=== PATIENT | male | born 1955 | race Caucasian/White ===

== ENCOUNTER → 2017-02-20 | Outpatient (CLI) | payer OTHER ==
--- NOTE | 2017-02-20 21:01 | PN ---
DATE OF SERVICE: 02/20/2017 A 61-year-old gentleman who has been followed in the sleep center for treatment of obstructive sleep apnea/hypopnea syndrome. Patient continues to use he is CPAP equipment every night for the whole night. He likes his machine and mask. No problem with the usage. No snoring while he is using his machine. He lost weight from 352 pounds down to 338 pounds. [place] Sleepiness Scale is slightly increased to 11. MEDICATIONS: 1. Aspirin. 2. Aldactone. 3. Atorvastatin. 4. Warfarin. 5. Losartan. 6. Metoprolol. 7. Glipizide. 8. Metformin. 9. Prednisolone. 10. Fish oil. PHYSICAL EXAMINATION: GENERAL: A 61-year-old gentleman without distress. VITAL SIGNS: BP 141/77, HR 70, RR 18, height 73 inches. Weight 338.8 pounds. BMI 44.5. Temperature 97.8. Oxygen saturation at room air 93%. HEENT: PERRLA, EOMI, Evaluation of the oropharynx showed tongue protrudes midline. Extremely low position of soft palate. NECK: Supple. No JVD, Thyroid is not palpable. LUNGS: Clear to percussion and to auscultation. Good air exchange. No wheezing or rhonchi. HEART: S1, S2. Sounds regular today. ABDOMEN: Obese, soft and nontender. Bowel sounds are present. No organomegaly appreciated. EXTREMITIES: 1+ bilateral ankle edema. ROOF TECHNICIAN: Awake, alert, and oriented x3. Cranial nerves 2 to 7 intact. There is no fasciculation or atrophy noted. No focal deficits observed. IMPRESSION: 1. Obstructive sleep apnea-hypopnea syndrome. Patient continues to use his continuous positive airway pressure equipment, benefiting from treatment. 2. Hypertension. 3. History of atrial fibrillation. 4. Swelling of the legs, congestive heart failure. 5. Hyperlipidemia. 6. History of pulmonary hypertension in the past. 7. Borderline blood sugar, pre-diabetes. PLAN: 1. Continue treatment with CPAP every night for the whole night. 2. Continue losing weight. 3. Sleep hygiene with regular time in bed for at least 8 hours. 4. No driving if feeling any sleepiness. 5. Prescription for all necessary CPAP supplies, including mask, tube, filters. Thank you very much for allowing me to participate in the management of your patient. Sincerely, Laz Luis MD, PhD, FAASM Diplomat of [place] [employer], Sleep Medicine Board by [place] [employer] [place] [employer] Tile Molder [facility]
== END | disposition home or self-care (01) ==
LOC: SLEEP 15:57
PROVIDERS: ATTEND Internal Medicine
DX: G47.33 Obstructive sleep apnea (adult) (pediatric) (principal); I10 Essential (primary) hypertension; I25.10 Atherosclerotic heart disease of native coronary artery without angina pectoris; I50.9 Heart failure, unspecified; E78.5 Hyperlipidemia, unspecified; R73.03 Prediabetes; Z79.899 Other long term (current) drug therapy; Z79.01 Long term (current) use of anticoagulants; Z68.41 Body mass index [BMI] 40.0-44.9, adult

== ENCOUNTER → 2018-04-20 | Outpatient (CLI) | payer OTHER ==
[2018-04-20 12:18] LABS: HCT 38.3 % (39.0-53.0); HGB 13.7 gm/dL (13.0-17.5); MCH 31.4 pg (25.0-35.0); MCHC 35.8 g/dL (31.0-37.0); MCV 87.7 fL (80.0-100.0); Mean Platelet Volume 8.2; Platelet Count 195 k/uL (150-450); RBC 4.37 m/uL (4.30-5.90); RDW 14.1 % (11.5-15.5); WBC 6.8 k/uL (3.8-10.6)
[2018-04-20 13:13] LABS: Anion Gap 11 mmol/L; Blood Urea Nitrogen 16 mg/dL (9-20); Carbon Dioxide 26 mmol/L (22-30); Chloride 102 mmol/L (98-107); Potassium 4.6 mmol/L (3.5-5.1); Sodium 139 mmol/L (137-145)
== END | disposition home or self-care (01) ==
LOC: LABPAT 11:45
PROVIDERS: ATTEND Internal Medicine Interventional Cardiology
DX: Z01.812 Encounter for preprocedural laboratory examination (principal); I25.10 Atherosclerotic heart disease of native coronary artery without angina pectoris
CPT/HCPCS: 36415; 80051; 82565; 84520; 85027

== ENCOUNTER 2018-04-24 06:33 | Day surgery (SDC) | payer OTHER ==
[2018-04-21 08:59] VITALS: BMI 43.6
[~2018-04-24 06:33] MED LIST: ALPRAZolam 0.25 MG TAB PO PRN; ALPRAZolam 0.5 MG TAB PO PRN; ASPIRIN 325 MG TAB PO STA; ATORVASTATIN 80 MG TAB PO STA; NITROGLYCERIN SL TABS 0.4 MG TAB SUBLINGUAL PRN; SODIUM CHLORIDE 0.9% 1,000 ML in EMPTY BAG 1 BAG IV ONE
[2018-04-24 07:13] VITALS: TEMP 98.1
[2018-04-24 07:18] LABS: Glucose,Whole Blood 183 mg/dL (75-99)
[2018-04-24 07:22] LABS: INR 1.2 (<1.2); Prothrombin Time 11.1 sec (9.0-12.0)
[2018-04-24] MEDS ORDERED: MIDAZOLAM 2 MG/2 ML VIAL IVP ONE (07:38)
[2018-04-24] MEDS ORDERED: LIDOCAINE 1% INJ 10MG/ML (20 ML MDV) SQ ONE (07:41)
[2018-04-24] MEDS: VERAPAMIL SYRINGE (5 MG/10 ML) INTRAARTER ONE ×2 (07:42→08:10)
[2018-04-24] MEDS ORDERED: HEPARIN SODIUM 1,000 UN/ML (10ML VL) IV ONE (07:44)
[2018-04-24] MEDS ORDERED: fentaNYL (PF) 50 MCG/ML 2 ML AMP IV ONE (08:07)
[2018-04-24] MEDS ORDERED: IOPAMIDOL-370 125ML BTL INJ ONE (08:09)
[2018-04-24] MEDS ORDERED: RX INFO: IV CONTRAST WAS GIVEN 1 EACH MISC MISCELLANE PRN (08:14)
[2018-04-24] MEDS ORDERED: SODIUM CHLORIDE 0.9% 1,000 ML IV SCH (08:15)
--- NOTE | 2018-04-24 09:15 | CC ---
CARDIAC CATHETERIZATION REPORT DATE OF SERVICE: 04/24/2018 PERFORMING PHYSICIAN: Milo Pedroza MD, Manager Mall. PROCEDURE PERFORMED: Selective right and left coronary angiogram. INDICATION: This is a pleasant 62-year-old gentleman with history of cardiomyopathy and status post Bi V ICD as well as multiple risk factors including hypertension and dyslipidemia and known coronary artery disease based on heart catheterization in 2011, was experiencing shortness of breath with exertion. He underwent a myocardial perfusion imaging stress test and that revealed anterolateral ischemia. Because of that, a heart catheterization was recommended. The patient does follow with Dr. Sesay as an outpatient. APPROACH: Right radial artery. COMPLICATION: None. LEVEL OF SEDATION: Moderate with a sedation length of 32 minutes. PROCEDURE DESCRIPTION: After obtaining an informed consent, the patient was brought to the cardiac entry level lab technician. The right radial artery was cannulated using micropuncture technique, the micropuncture wire passed easily, then I placed a 6-Croatian sheath in the right radial artery. After that, I gave the patient 2 mg of verapamil IA and 10,000 units of heparin IV. I did perform selective right and left coronary angiogram. The right coronary angiogram was performed using JR4 catheter and left coronary angiogram was performed using multipurpose catheter. I had a hard time engaging the left main using JL3.5 or JL3. The patient does have extremely tortuous left subclavian and the history extremely tortuous left subclavian artery. The procedure was completed without any complication. SELECTIVE CORONARY ANGIOGRAM: 1. The right coronary artery is a large caliber vessel and it is a dominant vessel. The RCA appeared to be angiographically normal. It bifurcates distally into PDA and PLV branches, both are angiographically normal. 2. The left main is angiographically normal. It is a calcified left main. It bifurcates into left circumflex and left anterior descending artery. 3. The left circumflex is a large caliber vessel. It is a nondominant vessel. The left circumflex appeared to be angiographically normal. In the midportion in the in the proximal portion gives rise into a large OM branch which is angiographically normal and the circ continued after that as a small-caliber vessel in the AV groove. 4. The LAD: The proximal LAD appeared to have mild disease only. The mid LAD appeared to have mild disease only and gives rise into a diagonal branch which appeared to be angiographically normal. The LAD distally is angiographically normal as well. CONCLUSION: 1. Mild nonobstructive coronary artery disease. 2. Calcified left coronary system. 3. Extremely tortuous left subclavian artery. For future heart catheterization,. right femoral approach is advised. POSTPROCEDURE MANAGEMENT: 1. Maximize medical treatment. 2. Follow up with the patient. OMER / TRINON: [id number] /
--- NOTE | 2018-04-24 09:22 | LTR ---
DATE OF SERVICE: 04/24/2018 RE: Greg Garcia Dear Landen; Mr. Greg Garcia underwent a heart catheterization after abnormal myocardial perfusion imaging stress test. The heart catheterization revealed mild nonobstructive coronary artery disease. Thank you for allowing us to participate in his care and please do not hesitate to call if you have any question or concern. Sincerely, MD OMER Cook / DAMON: [id number] /
[2018-04-24 10:34] VITALS: RESP 18
[2018-04-24 12:43] VITALS: BP 127/77; PULSE 68
== END 2018-04-24 13:17 | disposition home or self-care (01) ==
LOC: CATHCVL 06:33
PROVIDERS: ATTEND Internal Medicine Interventional Cardiology
DX: I25.110 Atherosclerotic heart disease of native coronary artery with unstable angina pectoris (principal); R94.39 Abnormal result of other cardiovascular function study; I10 Essential (primary) hypertension; I42.9 Cardiomyopathy, unspecified; I48.0 Paroxysmal atrial fibrillation; E78.00 Pure hypercholesterolemia, unspecified; G47.33 Obstructive sleep apnea (adult) (pediatric); E66.9 Obesity, unspecified; Z68.41 Body mass index [BMI] 40.0-44.9, adult; Z82.49 Family history of ischemic heart disease and other diseases of the circulatory system; Z95.810 Presence of automatic (implantable) cardiac defibrillator; Z88.1 Allergy status to other antibiotic agents; Z88.0 Allergy status to penicillin; Z88.2 Allergy status to sulfonamides; Z79.01 Long term (current) use of anticoagulants; Z79.84 Long term (current) use of oral hypoglycemic drugs; Z79.82 Long term (current) use of aspirin; Z79.899 Other long term (current) drug therapy
CPT/HCPCS: 93454; 85610; C1769 ×3; C1894; J2250; J2001; J3010; J1644; Q9967

== ENCOUNTER → 2020-07-13 | Outpatient (CLI) | payer OTHER ==
--- NOTE | 2020-07-13 11:25 | US ---
EXAMINATION TYPE: US venous doppler duplex LE RT DATE OF EXAM: 07/13/2020 11:17 AM COMPARISON: CLINICAL HISTORY: R22.41 Localized swelling, mass and lump, right,L03.115. Redness. On blood thinner s. No hx DVT. Patient states being on antibiotics and has been better. SIDE PERFORMED: Right TECHNIQUE: The lower extremity deep venous system is examined utilizing real time linear array sonog ramón with graded compression, doppler sonography and color-flow sonography. VESSELS IMAGED: External Iliac Vein (EIV) Common Femoral Vein Deep Femoral Vein Greater Saphenous Vein * Femoral Vein Popliteal Vein Small Saphenous Vein * Proximal Calf Veins (* superficial vessels) Right Leg: Negative for DVT IMPRESSION: There is no evidence for DVT at this time.
== END | disposition home or self-care (01) ==
LOC: RADUSWWP 10:03
PROVIDERS: ATTEND Family Medicine
DX: L03.115 Cellulitis of right lower limb (principal); R22.41 Localized swelling, mass and lump, right lower limb

== ENCOUNTER → 2023-10-14 | Outpatient (CLI) | payer MEDICARE ==
--- NOTE | 2023-10-14 11:26 | XR ---
EXAMINATION TYPE: XR shoulder complete RT DATE OF EXAM: 10/14/2023 COMPARISON: NONE HISTORY: Pain TECHNIQUE: Three views are submitted. FINDINGS: The osseous structures are intact. There is no acute fracture or dislocation. Hypertrophic arthropat hy of the AC joint. Cardiac leads noted. IMPRESSION: 1. AC joint hypertrophic arthropathy correlate for impingement.
== END | disposition home or self-care (01) ==
LOC: RADXRYALE 10:15
PROVIDERS: ATTEND Physician Assistant Medical
DX: M19.011 Primary osteoarthritis, right shoulder (principal)

== ENCOUNTER 2023-12-11 13:57 | Day surgery (SDC) | payer MEDICARE ==
[2023-12-11] MEDS: SODIUM CHLORIDE 0.9% 1,000 ML IV SCH (14:55)
[2023-12-11] MEDS ORDERED: VANCOMYCIN 2,000 MG in SODIUM CHLORIDE 0.9% 250 ML IVPB PRN (15:00)
[2023-12-11 15:03] LABS: Glucose,Whole Blood 117 mg/dL (70-110)
[2023-12-11 15:17] LABS: INR 2.3 (<1.2); Prothrombin Time 22.7 sec (10.0-12.5)
[2023-12-11] MEDS ORDERED: MIDAZOLAM 2 MG/2 ML VIAL ONE (16:40)
[2023-12-11] MEDS ORDERED: fentaNYL (PF) 50 MCG/ML 2 ML AMP ONE (16:40)
[2023-12-11] MEDS: CLINDAMYCIN 600 MG in SODIUM CHLORIDE 0.9% 250 ML IRRIGATION PRN (16:59)
[2023-12-11] MEDS: VANCOMYCIN 2,000 MG in SODIUM CHLORIDE 0.9% 500 ML 500 ML IVPB PRN (16:59)
[2023-12-11] MEDS: CLINDAMYCIN 900 MG in DEXTROSE 5% IN WATER 50 ML IVPB PRN (16:59)
[2023-12-11] MEDS: LIDOCAINE 1% INJ 10MG/ML (20 ML MDV) ONE (17:19)
[2023-12-11] MEDS: ROPIVACAINE 5 MG/ML 30 ML VIAL MISCELLANE ONE (17:23)
[2023-12-11] MEDS ORDERED: ACETAMINOPHEN TAB 325 MG TAB PO PRN (18:04)
--- NOTE | 2023-12-11 18:04 | P.EPPROC ---
- EP Procedure Note Electrophysiology Procedure Note: Diagnosis Mild cardiomyopathy ejection fraction 50% Complete heart block status post AV node ablation for atrial fibrillation Status post biventricular pacemaker Device at [facility] Procedure: Biventricular pacemaker generator change for device at [facility] secondary to normal battery depletion Result: Successful biventricular pacemaker generator change Atrial lead: Patient in atrial fibrillation RV ICD lead: 2.2 V at point 5 ms, no R waves, pace impedance 550 ohms Left ventricular lead: Pacing threshold 0.625 V at 1 ms, M3-M2, pace impedance 780 ohms Escobar NAIL SETTER-P, Quadra allure MP [id number] NAIL SETTER-P Procedure details: Patient was brought to the EP lab in a fasting state. Written informed consent was obtained prior to the procedure. Options, pros and cons, benefits and risks and complications discussed with patient in detail prior to the procedure (shared decision making) previously. Importance of continuing medical treatment emphasized previously. Alternatives discussed previously. Left upper extremity venogram performed. 15 mL IV dye injected in the left arm. Patent axillary/subclavian vein The left pectoral area was prepped and draped as a protocol. IV antibiotics administered 1% lidocaine was used for local anesthesia. A 4 cm incision was made parallel to the deltopectoral groove, about 1.5 cm medial to it. The incision was carried down to the level of the pectoralis muscle and the subfascial pocket was made. Hemostasis was assured. The axillary vein access was obtained. Appropriately sized into to see sheaths were placed. Chronic generator explanted New biventricular pacemaker generator implanted Pocket irrigated with antibiotic solution. Antibiotic pouch placed Leads connected to the biventricular ICD generator. Wound closed in 3 layers and dressed per protocol Biventricular pacemaker interrogated and programmed. VVIR 60 bpm LV RV offset 25 ms Auto capture programmed hospital Patient tolerated the procedure well without any acute complications. See scanned device report in EMR for lead details
[2023-12-11 21:09] VITALS: RESP 16
[2023-12-11] MEDS: LOSARTAN 50 MG TAB PO SCH (21:46)
[2023-12-11] MEDS: ATORVASTATIN 20 MG TAB PO SCH (21:46)
[2023-12-11] MEDS: MAGNESIUM OXIDE 400 MG TAB PO SCH (21:46)
[2023-12-11] MEDS: metFORMIN 500 MG TAB PO SCH (21:46)
[2023-12-11] MEDS: CLINDAMYCIN 900 MG in DEXTROSE 5% IN WATER 50 ML IVPB SCH (21:59)
[2023-12-12] MEDS: LACTATED RINGERS 1,000 ML IV SCH (02:33)
[2023-12-12] MEDS: SODIUM CHLORIDE 0.9% 1,000 ML IV SCH (02:34)
[2023-12-12 03:17] VITALS: TEMP 97.6
[2023-12-12 08:00] LABS: Glucose,Whole Blood 122 mg/dL (70-110)
[2023-12-12 08:41] LABS: ALT 33 U/L (4-49); AST 29 U/L (17-59); African American GFR (CKD) >90 (>60 ml/min/1.73 sqM); Albumin 4.5 g/dL (3.5-5.0); Albumin/Globulin Ratio 1.7; Alkaline Phosphatase 66 U/L (38-126); Anion Gap 9 mmol/L; Blood Urea Nitrogen 20 mg/dL (9-20); Calcium 9.5 mg/dL (8.4-10.2); Carbon Dioxide 27 mmol/L (22-30); Chloride 105 mmol/L (98-107); Globulin 2.6 g/dL; Glucose 130 mg/dL (74-99); Non-African American GFR(CKD) >90 (>60 ml/min/1.73 sqM); Potassium 4.8 mmol/L (3.5-5.1); Sodium 141 mmol/L (137-145); Total Bilirubin 0.9 mg/dL (0.2-1.3); Total Protein 7.1 g/dL (6.3-8.2)
[2023-12-12] MEDS: ASPIRIN 81 MG PO SCH (09:11)
[2023-12-12] MEDS: METOPROLOL SUCCINATE (ER) 100 MG TAB.ER.24H PO SCH (09:11)
[2023-12-12] MEDS: VALSARTAN 160 MG TAB PO STA (09:11)
--- NOTE | 2023-12-12 09:22 | DS ---
DISCHARGE SUMMARY Mr. Garcia has a biventricular pacemaker following AV node ablation for management of permanent atrial fibrillation. He underwent a biventricular pacemaker generator change yesterday for device at [facility] secondary to normal battery depletion. He is doing well. He has minimal soaking of the dressing. No swelling. Heart sounds are normal. Breath sounds are clear. His blood pressure is elevated. However, he received only 50 mg of losartan in lieu of 300 mg of Avapro. However, he states that he has been noticing that his blood pressures when he gets up in the morning is high, 140 to 150 systolic. He takes 200 mg of metoprolol in the morning and this controls his blood pressure well. However, even though he takes 300 mg of Avapro at night, in the morning, his blood pressure is still elevated and he has noticed this since August. In addition, he complains of some shortness of breath on exertion and tiredness. Suggest: 1. Discharge home today. 2. Restart all medications unchanged including Coumadin, irbesartan, metoprolol succinate. 3. Home blood pressure monitoring for 1 week twice a day and then I will add Maxzide in the morning if needed in addition to irbesartan and metoprolol succinate. 4. The alternative is amlodipine. 5. I also sent all his labs this morning including TSH, hemoglobin A1c, lipid panel, and CMP. I will look at these and then decide on further management. 6. When he comes back for the device clinic check, we will adjust his rate responsiveness walk test. MMNAVI / TRINON: [id number] /
[2023-12-12 12:00] VITALS: BP 117/73; PULSE 62
[2023-12-12 16:01] LABS: Chol/HDL Ratio 4.09 Ratio; LDL Cholesterol,Calculated 64.2 mg/dL (0.0-131.0)
--- NOTE | 2023-12-19 07:39 | P.EPPROC ---
- EP Procedure Note Electrophysiology Procedure Note: Diagnosis Mild cardiomyopathy ejection fraction with improvement with BiV pacing, left ventricular ejection fraction now at 50% Complete heart block status post AV node ablation for atrial fibrillation Status post biventricular pacemaker Device at [facility] Procedure: Biventricular pacemaker generator change for device at [facility] secondary to normal battery depletion Result: Successful biventricular pacemaker generator change Chronic atrial lead: Patient in atrial fibrillation Chronic RV ICD lead: 2.2 V at point 5 ms, no R waves, pace impedance 550 ohms Chronic left ventricular lead: Pacing threshold 0.625 V at 1 ms, M3-M2, pace impedance 780 ohms Escobar LEATHER PRODUCTION MACHINE OPERATOR-P, Quadra allure MP 3562 LEATHER PRODUCTION MACHINE OPERATOR-P Procedure details: Patient was brought to the EP lab in a fasting state. Written informed consent was obtained prior to the procedure. Options, pros and cons, benefits and risks and complications discussed with patient in detail prior to the procedure (shared decision making) previously. Importance of continuing medical treatment emphasized previously. Alternatives discussed previously. The left pectoral area was prepped and draped as a protocol. IV antibiotics administered 1% lidocaine was used for local anesthesia. A 4 cm incision was made parallel to the deltopectoral groove, about 1.5 cm medial to it. The incision was carried down to the level of the pectoralis muscle and the subfascial pocket was accessed. Hemostasis was assured. Chronic generator explanted New biventricular pacemaker generator implanted Pocket irrigated with antibiotic solution. Antibiotic pouch placed Leads connected to the biventricular ICD generator. Wound closed in 3 layers and dressed per protocol Biventricular pacemaker interrogated and programmed. VVIR 60 bpm LV RV offset 25 ms Auto capture programmed hospital Patient tolerated the procedure well without any acute complications. See scanned device report in EMR for lead details
== END 2023-12-12 13:08 | disposition home or self-care (01) ==
LOC: CATHEP 13:57 → 6NMEDSUR 18:00 → CATHEP 12-12 13:08
PROVIDERS: ATTEND Internal Medicine Clinical Cardiac Electrophysiology
DX: I42.8 Other cardiomyopathies (principal); I44.2 Atrioventricular block, complete; I48.21 Permanent atrial fibrillation; E11.9 Type 2 diabetes mellitus without complications; I25.10 Atherosclerotic heart disease of native coronary artery without angina pectoris; I10 Essential (primary) hypertension; E78.5 Hyperlipidemia, unspecified; Z88.1 Allergy status to other antibiotic agents; Z95.0 Presence of cardiac pacemaker; Z88.0 Allergy status to penicillin; Z88.2 Allergy status to sulfonamides; Z79.01 Long term (current) use of anticoagulants; Z79.82 Long term (current) use of aspirin; Z79.84 Long term (current) use of oral hypoglycemic drugs; Z79.899 Other long term (current) drug therapy
CPT/HCPCS: 33229; 80053; 80061; 84443; 85610; 83036; C2621; J2250; J3370; J2001; J3010; J2795; J0736 ×2

== ENCOUNTER → 2024-07-06 | Outpatient (CLI) | payer MEDICARE | END | disposition home or self-care (01) | LOC: LABWHC1 14:23 | PROVIDERS: ATTEND Orthopaedic Surgery | DX: Z01.812 Encounter for preprocedural laboratory examination (principal); M17.12 Unilateral primary osteoarthritis, left knee; Z22.322 Carrier or suspected carrier of Methicillin resistant Staphylococcus aureus | CPT/HCPCS: 87070 ==

== ENCOUNTER 2024-08-16 05:45 | Day surgery (SDC) | payer MEDICARE ==
[~2024-08-16 05:45] MED LIST changes: -ALPRAZolam 0.25 MG TAB PO PRN; -ALPRAZolam 0.5 MG TAB PO PRN; -ASPIRIN 325 MG TAB PO STA; -ATORVASTATIN 80 MG TAB PO STA; -NITROGLYCERIN SL TABS 0.4 MG TAB SUBLINGUAL PRN; -SODIUM CHLORIDE 0.9% 1,000 ML in EMPTY BAG 1 BAG IV ONE; +TRANEXAMIC 1,000 MG/100ML-NACL 1,000 MG in SALINE 1 100ML.BAG IVPB PRN
[2024-08-16] MEDS: LACTATED RINGERS 1,000 ML IV SCH ×2 (06:25→15:37)
[2024-08-16] MEDS: LIDOCAINE 1% (10MG/ML) FOR IV START INTRADERMA PRN (06:25)
[2024-08-16] MEDS: IV FLUID CONTINUATION 1,000 ML IV ONE (06:25)
[2024-08-16] MEDS: ACETAMINOPHEN TAB 500 MG TAB PO PRN (06:44)
[2024-08-16] MEDS: DEXAMETHASONE SOD PHOSPHATE 4 MG/ML 1 ML VIAL IV ONE (06:44)
[2024-08-16] MEDS: ONDANSETRON 4 MG/2 ML VIAL IVP ONE (06:44)
[2024-08-16] MEDS: MELOXICAM 7.5 MG TAB PO PRN (06:44)
[2024-08-16 06:45] LABS: Glucose,Whole Blood 140 mg/dL (70-110)
[2024-08-16 06:54] LABS: INR 1.1 (<1.2); Prothrombin Time 11.4 sec (10.0-12.5)
[2024-08-16] MEDS ORDERED: HYDROmorphone 0.5 MG/0.5 ML SYRINGE IVP PRN ×4 (07:00→09:28)
[2024-08-16] MEDS: MIDAZOLAM 2 MG/2 ML VIAL IV ONE (07:08)
--- NOTE | 2024-08-16 07:26 | HP ---
HISTORY AND PHYSICAL DATE OF SURGERY: 08/16/2024. HISTORY OF PRESENT ILLNESS: Greg Garcia is a 69-year-old gentleman seen with symptomatic left knee osteoarthritis. We had discussed treatment options. He elected to proceed with left total knee arthroplasty. Consents obtained. Medical clearance was provided by Dr. Crabtree. PAST MEDICAL HISTORY: Hypertension, hyperlipidemia, aqq-ulnsojz-irazcllmn diabetes. PAST SURGICAL HISTORY: Noncontributory. DAILY MEDICATIONS: 1. Aspirin. 2. Atorvastatin. 3. Metformin. 4. Coumadin. ALLERGIES: None reported. SOCIAL HISTORY: Denies tobacco use. PHYSICAL EVALUATION OF THE LEFT KNEE: Range of motion is -3 to 120 degrees. Mild effusion. Tenderness, medial joint line. Crepitus, medial patellofemoral compartments with range of motion. Ligaments stable. Hip rotation without pain. Distal neurovascular exam is intact. IMAGING STUDIES: Radiographs of the left knee reveal severe osteoarthritic changes. IMPRESSION: 1. Left knee osteoarthritis. 2. Hypertension. 3. Hyperlipidemia. 4. Xtl-ljqstox-igurzvpmm diabetes. 5. Cardiovascular disease. PLAN: Left total knee arthroplasty. MMODL / IJN: [id number] /
[2024-08-16] MEDS ORDERED: PROPOFOL 10 MG/ML 20 ML VIAL IV ONE (07:29)
[2024-08-16] MEDS: ceFAZolin 3 GM in SODIUM CHLORIDE 0.9% 100 ML IVPB PRN (07:29)
[2024-08-16] MEDS ORDERED: PHENYLEPHRINE 10 MG/ML VIAL ONE (07:29)
[2024-08-16] MEDS ORDERED: DEXAMETHASONE SOD PHOSPHATE 4 MG/ML 1 ML VIAL ONE (07:29)
[2024-08-16] MEDS ORDERED: TRANEXAMIC 1,000 MG/100ML-NACL PREMIX BAG ONE (07:29)
[2024-08-16] MEDS ORDERED: ePHEDrine 50 MG/ML 1 ML VIAL ONE (07:29)
[2024-08-16] MEDS ORDERED: ROPIVACAINE 5 MG/ML 30 ML VIAL ONE (07:29)
[2024-08-16] MEDS ORDERED: KETAMINE HCL IN 0.9 % NACL 50 MG/5 ML SYRINGE ONE (07:29)
[2024-08-16] MEDS: ceFAZolin 1,000 MG in SODIUM CHLORIDE 0.9% 1,000 ML IRRIGATION ONE (08:02)
[2024-08-16] MEDS: LACTATED RINGERS 1,000 ML IV ONE (09:20)
[2024-08-16] MEDS ORDERED: HYDROcodone/APAP 7.5-325MG 1 EACH TAB PO PRN (09:28)
[2024-08-16] MEDS ORDERED: NALOXONE 0.4 MG/ML 1 ML VIAL IV PRN (09:28)
[2024-08-16] MEDS ORDERED: ONDANSETRON 4 MG/2 ML VIAL IVP PRN (09:28)
--- NOTE | 2024-08-16 09:28 | P.OP ---
Date of Procedure: 08/16/24 Preoperative Diagnosis: Left knee osteoarthritis Postoperative Diagnosis: Left knee osteoarthritis Procedure(s) Performed: Left total knee arthroplasty Implants: 1. DePuy attune size 8 left cruciate retaining cemented femur 2. DePuy attune size 8 fixed-bearing cemented tibial baseplate 3. DePuy attune size 8 fixed-bearing cruciate retaining 7 mm polyethylene tibial insert 4. DePuy attune 41 mm all polyethylene cemented patella Anesthesia: regional (Adductor canal catheter, iPAQ block), spinal Surgeon: Nigel English Appliance Counselor #1: Louis Still Estimated Blood Loss (ml): 40 Pathology: none sent Condition: stable Disposition: PACU Indications for Procedure: 69-year-old patient seen with symptomatic left knee osteoarthritis. After having treatment options discussed, he elected to proceed with total knee arthr oplasty. Operative Findings: See description of procedure Description of Procedure: Patient was taken to the operative suite after having an adductor canal catheter placed by the department of anesthesia. Patient underwent a spinal anesthetic by the department of anesthesia. Patient was given preoperative IV intake antibiotics and TXA. A well-padded tourniquet was placed about the left lower extremity. The lower extremity was then prepped and draped in the normal sterile orthopedic fashion. The extremity was elevated, a tourniquet was in sufflated to 300. A standard anterior incision was made sharply through skin. Dissection was taken down through the subcutaneous soft tissues down to the extensor mechanism. A medial arthrotomy was performed, patella was everted and knee was flexed. There was advanced osteoarthritis noted. I introduced my distal intramedullary femoral drill. I then introduced the distal femoral cutting jig. Fan PATIÑO secured the cutting jig with 2 pins. I held retractors in position while Fan PATIÑO performed the distal femoral resection through the guide area we now removed her distal femoral cutting guide. We now placed our 4-in-1 femoral cutting block and positioned and it was secured with 2 pins by Fan PATIÑO while I held the block in position. The distal femoral finishing was now completed. A proximal tibial cutting guide was positioned. I held the guide in the appropriate position with both hands well Fan PATIÑO inserted stabilizing pins into the guide. Proximal tibial cut was made. We now placed a trial femoral component into position, along with an appropriate size tibial tray and insert. We now took the knee through range of motion and had full extension good flexion and good overall soft tissue balance noted. The patella was everted and stabilized with 2 towel clips held by Fan PATIÑO while I performed a flush with patellar quad tendon utilizing a fresh sawblade. We templated the patella, appropriate drill holes were made. An appropriate trial patella was positioned, knee was taken through full range of motion with the patella tracking very nicely. The trial patella was removed. Drill holes were made through the femoral component. All trial components were removed after marking off the appropriate rotation of the tibia. Retractors were now positioned along the proximal tibia. An appropriate keel punch was made with the appropriate size tibial guide by myself on Fan PATIÑO assisted by holding retractors. At this point appropriate size implants were chosen and opened. The joint was irrigated copiously with pulse lavage mechanical irrigation. The wound was irrigated with pulse lavage mechanical irrigation. We mixed antibiotic methylmethacrylate. We placed the knee into flexion. We placed multiple retractors assisted by Fan PATIÑO to expose the proximal tibia. Once the methyl methacrylate was ready, the tibial component was cemented into place removing any excess methylmethacrylate form by both myself and Fan PATIÑO. The femoral component was cemented into place removing the removing any excess methylmethacrylate performed by both myself and Fan PATIÑO. We then inserted the appropriate size polyethylene tibial insert. We made sure that it was locked into position. We took the knee into full extension, and then back in a flexion making sure we had removed any excess methylmethacrylate. The patellar component was then cemented down and secured with clamp. Excess methylmethacrylate removed. We kept the knee in full extension, patellar clamp in position until methylmethacrylate had hardened. Once it had hardened the patellar clamp was removed. The knee was taken through full range of motion. The patella tracked nicely. There was good soft tissue balancing. The tourniquet was now released. Additional hemostasis was achieved via electrocautery. A second gram of TXA was given. The wound again was irrigated with pulse lavage mechanical irrigation. The extensor mechanism was repaired with Ethibond suture. We checked the repair with range of motion and it was stable. The subcutaneous soft tissues were repaired with Vicryl in layers. The skin was approximated with pernio/Dermabond. Sterile dressings were applied followed by loose web roll and Gopal bandage. The patient was transferred to a bed, and taken to recovery in stable and satisfactory condition. Fan PATIÑO assisted with this complex procedure.
[2024-08-16] MEDS: ROPIVACAINE 1,100 MG, SODIUM CHLORIDE 0.9% 500 ML 330 ML, EMPTY PAIN BALL 1 EACH MISCELLANE PRN (09:54)
--- NOTE | 2024-08-16 10:21 | XR ---
EXAMINATION TYPE: XR knee limited LT DATE OF EXAM: 08/16/2024 10:13 AM CLINICAL INDICATION: Male, 69 years old with history of Evaluation for Postop abnormality and alignme nt; [facility] COMPARISON: None. TECHNIQUE: XR knee limited LT; examined in Frontal, lateral projections. FINDINGS: Status post total knee arthroplasty changes with hardware in appropriate alignment and in tact. No evidence of fracture. Subcutaneous lucencies and lucencies within the joint consistent with surgical changes. IMPRESSION: Status post total knee arthroplasty changes with hardware intact and appropriate alignment. No fractu res identified. [facility], , 08/16/2024 10:19 AM
[2024-08-16] MEDS: droPERidol 5 MG/2 ML VIAL IVP ONE (13:35)
--- NOTE | 2024-08-16 14:51 | P.ANPRN ---
Procedure Note - Anesthesia - Nerve Block Performed Left Adductor Canal Infusion Time Out Performed: Yes Date of Procedure: 08/16/24 Procedure Start Time: 07:00 Procedure Stop Time: 07:16 Location of Patient: PreOp Indication: Acute Post-Operative Pain, Requested by Surgeon Sedation Type: Sedate with meaningful contact maintained Preparation: Sterile Prep Position: Supine Catheter: Indwelling Needle Types: Pajunk Needle Gauge: 21 Ultrasound used to visualize needle placement: Yes Ultrasound used to observe medication spread: Yes Blood Aspirated: No Pain Paresthesia on Injection Noted: No Resistance on Injection: Normal Image Stored and Saved: Yes Events: Uneventful and Well Tolerated (Ropivacaine 0.5% 20 cc plus dexamethasone 4 mg)
--- NOTE | 2024-08-16 14:54 | P.ANPRN ---
Procedure Note - Anesthesia - Nerve Block Performed Left iPack Single Time Out Performed: Yes ( patient shares) Date of Procedure: 08/16/24 Procedure Start Time: : Procedure Stop Time: : Location of Patient: PreOp Indication: Acute Post-Operative Pain, Requested by Surgeon Sedation Type: Sedate with meaningful contact maintained Preparation: Sterile Prep Position: Supine Needle Types: Pajunk Needle Gauge: 21 Ultrasound used to visualize needle placement: Yes Ultrasound used to observe medication spread: Yes Blood Aspirated: No Pain Paresthesia on Injection Noted: No Resistance on Injection: Normal Image Stored and Saved: Yes Events: Uneventful and Well Tolerated (Ropivacaine 0.5% 20 cc was dexamethasone 4 mg)
[2024-08-16] MEDS: ceFAZolin 3 GM in SODIUM CHLORIDE 0.9% 100 ML IVPB SCH (15:37)
[2024-08-16 15:59] LABS: Glucose,Whole Blood 152 mg/dL (70-110)
--- NOTE | 2024-08-16 19:01 | P.CONS ---
History of Present Illness - Reason for Consult Consult date: 08/16/24 - History of Present Illness Patient is a 69-year-old male with PMH of type 2 diabetes, CAD, chronic A-fib on Eliquis, complete heart block status post biventricular pacemaker and ICD. Internal medicine is consulted for medical management. Patient underwent left total knee arthroplasty. This is a postop day 0. Surgery was uncomplicated. Patient has not complaining of any major pain. Denies any headaches, nausea, v omiting, shortness of breath, chest pain, abdominal pain, diarrhea, constipation. Denies numbness or tingling in upper or lower extremities. Review of systems: Pertinent positives and negatives as discussed in HPI, a complete review of systems was performed and all other systems are negative. Physical examination: Vital signs reviewed General: non toxic, no distress, appears at stated age, normal weight Cardiovascular: S1S2 reg, no murmur, positive dorsalis pedis pulse bilateral, no edema Lungs: CTA bilateral, no rhonchi, no rales, no accessory muscle use Abdominal: soft, nontender to palpation, no guarding Ext: Unable to examine left lower extremity due to mild pain Neuro: CN II-XI grossly intact, no gross focal neuro deficits Psych: Alert, oriented, appropriate affect Assessment/Plan: Patient is a 69-year-old male with PMH of type 2 diabetes, CAD, chronic A-fib on Eliquis, complete heart block status post biventricular pacemaker and ICD. Internal medicine is consulted for medical management. Patient underwent left total knee arthroplasty. This is a postop day 0. Surgery was uncomplicated. #Left total knee arthroplasty Postop day 0 Management as per orthopedic #Chronic conditions Type 2 diabetes, hypertension, A-fib, hyperlipidemia Home medication reconciled DVT prophylaxis: Apixaban 5 mg p.o. I saw and evaluated the patient during the goodman and critical portions of this encounter, and discussed the case in detail with the resident author of this note, I agree with the Assessment and Plan, and my changes, if any, are highlighted in blue. Past Medical History Past Medical History: Atrial Fibrillation, Diabetes Mellitus, Eye Disorder, Hyperlipidemia, Hypertension, Osteoarthritis (OA), Sleep Apnea/CPAP/BIPAP Additional Past Medical History / Comment(s): pulmonary hypertension, uses CPAP, just transitioned from warfarin to eliquis a week ago History of Any Multi-Drug Resistant Organisms: None Reported Past Surgical History: Heart Catheterization, Joint Replacement, Orthopedic Surgery, Pacemaker Additional Past Surgical History / Comment(s): Bilateral knee arthoscopy. Heart cath x3. Bilateral cataract surgery. CARDIOVERSION X 2, TOTAL RIGHT KNEE, pacemaker 02/22/16, turned on in may 2016, cassandra cataracts removed, foot surg. Past Anesthesia/Blood Transfusion Reactions: No Reported Reaction Type of Cardiac Device: Permanent Pacemaker Device Placement Date:: December 2023 Past Psychological History: No Psychological Hx Reported Smoking Status: Never smoker Past Alcohol Use History: None Reported Past Drug Use History: None Reported - Past Family History Father Family Medical History: CVA/TIA Brother(s) Family Medical History: Diabetes Mellitus, Deep Vein Thrombosis (DVT) Medications and Allergies Home Medications Medication Instructions Recorded Confirmed Type Atorvastatin Calcium [Lipitor] 20 mg PO HS 03/13/14 08/09/24 History Aspirin [Adult Low Dose Aspirin EC] 81 mg PO DAILY 11/06/15 08/09/24 History Magnesium Chloride [Slow-Mag] 64 mg PO BID 11/06/15 08/09/24 History Metoprolol Succinate (ER) [Toprol 200 mg PO QAM 11/14/15 08/09/24 History XL] prednisoLONE acetate [Pred Forte 1 drop RIGHT EYE MO 11/14/15 08/09/24 History 1%] Multivitamins, Thera [Multivitamin 1 each PO DAILY 05/13/16 08/09/24 History (formulary)] Irbesartan 150 mg PO BID 12/08/23 08/09/24 History metFORMIN HCL 500 mg PO BID 12/08/23 08/09/24 History Apixaban [Eliquis] 5 mg PO BID 08/09/24 08/09/24 History [place]-3/Dha/Epa/Fish Oil [[place]-3 1 each PO DAILY 08/09/24 08/09/24 History Fish Oil 1,000 mg Sfgl] Triamterene-Hctz 37.5-25Mg 1 cap PO DAILY 08/09/24 08/09/24 History [Dyazide 37.5-25 Capsule] Allergies Allergy/AdvReac Type Severity Reaction Status Date / Time ciprofloxacin [From Cipro] Allergy Rash/Hives Verified 08/09/24 14:29 Penicillins Allergy Rash/Hives Verified 08/09/24 14:29 SULFA EYE DROPS AdvReac EYE Uncoded 08/09/24 14:29 IRRITATION Physical Exam Osteopathic Statement: *. No significant issues noted on an osteopathic structural exam other than those noted in the History and Physical/Consult. Vitals: Vital Signs Temp Pulse Resp BP Pulse Ox 08/16/24 15:35 61 163/89 98 08/16/24 15:20 60 159/81 94 L 08/16/24 15:05 60 159/85 96 08/16/24 15:01 97.7 F 60 16 157/79 98 08/16/24 14:45 60 164/102 98 08/16/24 14:35 61 164/88 97 08/16/24 14:15 60 176/103 99 08/16/24 14:05 60 152/81 98 08/16/24 13:30 60 161/86 99 08/16/24 12:15 60 18 156/74 100 08/16/24 11:45 60 14 149/69 98 08/16/24 11:30 60 14 145/72 99 08/16/24 11:07 60 12 151/78 99 08/16/24 10:37 60 10 L 153/75 99 08/16/24 10:22 60 10 L 155/76 95 08/16/24 10:07 60 08/16/24 09:52 60 15 149/68 96 08/16/24 09:37 60 16 140/69 100 08/16/24 07:20 60 16 164/77 98 08/16/24 06:10 97.3 F L 60 16 201/90 99 Intake and Output 08/16/24 08/16/24 08/16/24 06:59 14:59 22:59 Intake Total 600 501 Output Total 40 800 Balance 600 461 -800 Intake: IV 600 501 Output: Urine 800 Estimated Blood Loss 40 Other: Weight 132.4 kg 132.4 kg Results Labs: Abnormal Lab Results - Last 24 Hours (Table) 08/16/24 08/16/24 Range/Units 06:30 15:58 POC Glucose (mg/dL) 140 H 152 H (70-110) mg/dL
[2024-08-16] MEDS: SENNOSIDES-DOCUSATE SODIUM 1 EACH TAB PO SCH (20:37)
[2024-08-16] MEDS: ATORVASTATIN 20 MG TAB PO SCH (20:38)
[2024-08-16] MEDS: ASPIRIN 325 MG TAB PO SCH (20:38)
[2024-08-16] MEDS: LOSARTAN 50 MG TAB PO SCH (20:38)
[2024-08-16] MEDS: APIXABAN 5 MG TAB PO SCH (20:38)
[2024-08-16 20:54] LABS: Glucose,Whole Blood 176 mg/dL (70-110)
[2024-08-16] MEDS ORDERED: metFORMIN 500 MG TAB PO SCH (21:00)
[2024-08-16] MEDS: INSULIN ASPART (NovoLOG) 100 UNIT/ML VIAL SQ SCH (21:07)
[2024-08-17 03:48] VITALS: PULSE 60; RESP 16
[2024-08-17] MEDS: HYDROcodone/APAP 5-325MG 1 EACH TAB PO PRN (05:40)
[2024-08-17 06:37] LABS: Glucose,Whole Blood 158 mg/dL (70-110)
[2024-08-17 07:33] VITALS: BP 129/73; TEMP 97.6
[2024-08-17] MEDS: MAGNESIUM OXIDE 400 MG TAB PO SCH (08:43)
[2024-08-17] MEDS: ASPIRIN 81 MG PO SCH (08:43)
[2024-08-17] MEDS: METOPROLOL SUCCINATE (ER) 100 MG TAB.ER.24H PO SCH (08:43)
[2024-08-17] MEDS: TRIAMTERENE-HCTZ 37.5-25MG 1 EACH CAP PO SCH (08:43)
[2024-08-17] MEDS: MULTIVITAMINS, THERA 1 EACH TAB PO SCH ×2 (08:43→10:34)
[2024-08-17 08:53] LABS: Basophils # (A) 0.01 X 10*3/uL (0.00-0.10); Basophils % (A) 0.1 %; Eosinophils # (A) 0 X 10*3/uL (0.04-0.35); Eosinophils % (A) 0 %; HCT 36.9 % (39.6-50.0); HGB 12.4 g/dL (13.0-17.0); Lymphocytes # (A) 0.74 X 10*3/uL (0.90-5.00); Lymphocytes % (A) 6.2 %; MCHC 33.6 g/dL (32.0-37.0); MCV 89.1 FL (80.0-97.0); Mean Platelet Volume 12.9 FL (9.5-12.2); Monocytes # (A) 0.77 X 10*3/uL (0.20-1.00); Monocytes % (A) 6.5 %; NRBC Per 100 WBC 0 X 10*3/uL (0.00-0.01); Neutrophils # (A) 10.35 X 10*3/uL (1.80-7.70); Neutrophils % (A) 86.7 %; Platelet Count 182 X 10*3/uL (140-440); RBC 4.14 X 10*6/uL (4.40-5.60); RDW 14.6 % (11.5-14.5); WBC 11.93 X 10*3/uL (4.50-10.00)
[2024-08-17] MEDS ORDERED: NON FORMULARY DRUG (Omega-3/Dha/Epa/Fish Oil [Omega-3 Fish Oil 1,000 Mg Sfgl] 1 EACH Capsu PO SCH (09:00)
--- NOTE | 2024-08-17 10:17 | P.PN ---
Subjective Progress Note Date: 08/17/24 Principal diagnosis: Status post left total knee arthroplasty Patient evaluated at bedside, he is resting comfortably in his hospital chair. His pain is well-controlled. He did well with physical therapy. He denies headaches, lightheadedness, chest pain or shortness of breath Objective - Vital Signs Vital signs: Vital Signs Temp 97.6 F 08/17/24 07:32 Pulse 60 08/17/24 07:32 Resp 16 08/17/24 07:32 BP 129/73 08/17/24 07:32 Pulse Ox 99 08/17/24 07:32 FiO2 Intake & Output 08/16/24 08/17/24 08/17/24 18:59 06:59 18:59 Intake Total 501 1080 480 Output Total 840 2100 Balance -339 -1020 480 Weight 132.4 kg Intake: IV 501 Oral 1080 480 Output: Urine 800 2100 Estimated Blood Loss 40 Other: Voiding Method Urinal Urinal - Exam Left lower extremity: Incision is clean, dry, and intact. The foam dressing is in good condition. There is minimal soft tissue swelling and ecchymosis surrounding the medial and lateral aspects of the incision. Calf is soft, no tenderness with palpation. Plantar flexion, dorsiflexion, EHL, FHL are intact. Sensory exam to light touch throughout the extremity is intact, dorsal pedis pulses 2+. - Labs CBC & Chem 7: 08/17/24 02:44 Labs: Abnormal Lab Results - Last 24 Hours (Table) 08/16/24 08/16/24 08/17/24 Range/Units 15:58 20:53 02:44 WBC 11.93 H (4.50-10.00) X 10*3/uL RBC 4.14 L (4.40-5.60) X 10*6/uL Hgb 12.4 L (13.0-17.0) g/dL Hct 36.9 L (39.6-50.0) % RDW 14.6 H (11.5-14.5) % MPV 12.9 H (9.5-12.2) FL Immature Gran # 0.06 H (0.00-0.04) X 10*3/uL Neutrophils # 10.35 H (1.80-7.70) X 10*3/uL Lymphocytes # 0.74 L (0.90-5.00) X 10*3/uL Eosinophils # 0 L (0.04-0.35) X 10*3/uL POC Glucose (mg/dL) 152 H 176 H (70-110) mg/dL 08/17/24 Range/Units 06:34 WBC (4.50-10.00) X 10*3/uL RBC (4.40-5.60) X 10*6/uL Hgb (13.0-17.0) g/dL Hct (39.6-50.0) % RDW (11.5-14.5) % MPV (9.5-12.2) FL Immature Gran # (0.00-0.04) X 10*3/uL Neutrophils # (1.80-7.70) X 10*3/uL Lymphocytes # (0.90-5.00) X 10*3/uL Eosinophils # (0.04-0.35) X 10*3/uL POC Glucose (mg/dL) 158 H (70-110) mg/dL Assessment and Plan Assessment: Postoperative day #1 status post left total knee arthroplasty Plan: Pain control, plan for discharge home on [place] and DVT prophylaxis, resume Eliquis Wound care instructions discussed, this to include showering, icing and elevating Home PT/OT Medical recommendations appreciated Discharge planning: Patient stable for discharge home today Time with Patient: Less than 30
--- NOTE | 2024-08-17 10:21 | P.DS ---
Providers Date of admission: 08/16/2022 Expected date of discharge: 08/17/24 Attending physician: Nigel English Consults: 08/16/24 09:28 Consult Physician Routine Consulting Provider: Shahid Medina Consult Reason/Comments: Medical management Do you want consulting provider notified?: Yes [facility] Course: Date of admission: 08/16/2024 Date of discharge: 08/17/2024 Admission diagnosis: Status post left total knee arthroplasty Discharge diagnosis: Same Attending physician: Dr. English Surgical procedures: Left total knee arthroplasty Brief history: Patient is a 69-year-old male with a history of progressive primary left knee osteoarthritis. At this point patient has failed conservative treatment measures and has opted to proceed with a elective left total knee arthroplasty. Hospital course: Details of patient's surgery can be found in operative report. Patient tolerated the procedure well and was subsequently transported to orthopedic floor. Patient's orthopeidc and medical care was provided daily. Patient had daily laboratory tests performed for evaluation of overall blood counts. Patient had daily physical therapy to include strengthening range of motion as well as education with walker ambulation. Patient was treated with Eliquis for their postoperative DVT prophylaxis during their inpatient stay. Patient was noted to have a relatively uneventful postoperative course. Patient reported satisfactory pain control with oral pain medications by postoperative day 0. Patient showed satisfactory progress with physical therapy. Patient moved steadily through the program and had no difficulty meeting the goals by postoperative day 1. Given patient's otherwise satisfactory course and having met physical therapy goals, plan is to discharge patient home on postoperative day 1. Discharge condition/disposition: Patient will be discharged home in stable condition. Discharge medications: Instructions are given on resumption of patient's normal daily medications per primary care recommendation, in addition patient will be prescribed [place] 7.5 mg / 325 mg, senna S. Discharge instructions: 1. Wound care and infection precautions, keep incision dry and covered while showering, no lotions, creams, moisturizers. No soaking, tubs, pools, hottubs. Do not scrub over the incision. 2. Weight-bear as tolerated with walker / cane until follow-up. 3. Ice and elevate when necessary. Do not exceed 20 minutes per hour with ice pack. 4. Utilize compression sleeve until seen at first follow up appointment. 5. Visiting nursing care. 6. Home physical therapy including home CPM. 7. Pain meds and anticoagulants per prescription. 8. Pain medication has potential to cause constipation. Increase oral fluid and fiber intake. Contact primary care provider if you have not had a bowel movement within 48 hours after discharge 9. No anti-inflammatory medication until discussed at first post operative visit, this including Motrin, Aleve, Mobic, Diclofenac. 10. Follow up in office at 2 weeks postop with Fan Still PA-C/Eddy Raines 11. Follow up with your primary care doctor 7-10 days after discharge. 12. Contact [facility] with any questions, . Procedures: Left total knee arthroplasty Patient Condition at Discharge: Good Plan - Discharge Summary Discharge Rx Participant: No New Discharge Prescriptions: New HYDROcodone/APAP 7.5-325MG [[place] 7.5] 1 each PO Q6HR PRN #28 tab PRN Reason: Pain Sennosides/Docusate Sodium [Senna-S 8.6-50 mg Tablet] 2 each PO DAILY PRN #30 tablet PRN Reason: Constipation No Action Atorvastatin Calcium [Lipitor] 20 mg PO HS Magnesium Chloride [Slow-Mag] 64 mg PO BID Aspirin [Adult Low Dose Aspirin EC] 81 mg PO DAILY Metoprolol Succinate (ER) [Toprol XL] 200 mg PO QAM prednisoLONE acetate [Pred Forte 1%] 1 drop RIGHT EYE MO Multivitamins, Thera [Multivitamin (formulary)] 1 each PO DAILY Apixaban [Eliquis] 5 mg PO BID Triamterene-Hctz 37.5-25Mg [Dyazide 37.5-25 Capsule] 1 cap PO DAILY [place]-3/Dha/Epa/Fish Oil [[place]-3 Fish Oil 1,000 mg Sfgl] 1 each PO DAILY metFORMIN HCL 500 mg PO BID Irbesartan 150 mg PO BID Discharge Medication List Atorvastatin Calcium [Lipitor] 20 mg PO HS 03/13/14 [History] Aspirin [Adult Low Dose Aspirin EC] 81 mg PO DAILY 11/06/15 [History] Magnesium Chloride [Slow-Mag] 64 mg PO BID 11/06/15 [History] Metoprolol Succinate (ER) [Toprol XL] 200 mg PO QAM 11/14/15 [History] prednisoLONE acetate [Pred Forte 1%] 1 drop RIGHT EYE MO 11/14/15 [History] Multivitamins, Thera [Multivitamin (formulary)] 1 each PO DAILY 05/13/16 [History] Irbesartan 150 mg PO BID 12/08/23 [History] metFORMIN HCL 500 mg PO BID 12/08/23 [History] Apixaban [Eliquis] 5 mg PO BID 08/09/24 [History] [place]-3/Dha/Epa/Fish Oil [[place]-3 Fish Oil 1,000 mg Sfgl] 1 each PO DAILY 08/09/24 [History] Triamterene-Hctz 37.5-25Mg [Dyazide 37.5-25 Capsule] 1 cap PO DAILY 08/09/24 [History] HYDROcodone/APAP 7.5-325MG [[place] 7.5] 1 each PO Q6HR PRN #28 tab 08/17/24 [Rx] Sennosides/Docusate Sodium [Senna-S 8.6-50 mg Tablet] 2 each PO DAILY PRN #30 tablet 08/17/24 [Rx] Follow up Appointment(s)/Referral(s): [facility] [NON-STAFF] - As Needed (Continuous Passive Motion knee machine) Nigel English DO [Doctor of Osteopathic Medicine] - 08/31/24 1:40 pm [facility] [NON-STAFF] - As Needed Activity/Diet/Wound Care/Special Instructions: Orthopedic Discharge Instructions: 1. Wound care and infection precautions, keep incision dry and covered while showering, no lotions, creams, moisturizers. No soaking, pools, hot tubs. Do not scrub over incision. 2. Weight-bear as tolerated with walker / cane until follow-up. 3. Ice and elevate when necessary. Do not exceed 20 minutes per hour with ice pack. 4. Utilize compression sleeve until seen at first follow up appointment. 5. Pain meds and anticoagulants per prescription. 6. Pain medication has potential to cause constipation. Increase oral fluid and fiber intake. Contact primary care provider if you have not had a bowel movement within 48 hours after discharge. 7. No anti-inflammatory medication until discussed at first post operative visit, this including Motrin, Aleve, Mobic, Diclofenac. 8. Follow up in office at 2 weeks postop with Fan Still PA-C/Eddy Woods PA-C 9. Follow up with your primary care doctor 7-10 days after discharge. 10. Contact [facility] with any questions, . Wound care instructions: 1. Okay to remove surgical dressing as of 08/25/2024 Discharge Disposition: HOME WITH HOME HEALTH SERVICES
[2024-08-17 11:31] LABS: Glucose,Whole Blood 123 mg/dL (70-110)
== END 2024-08-17 12:33 | disposition home health service (06) ==
LOC: OR 05:45 → 4SSUR 09:31 → OR 08-17 12:33
PROVIDERS: ATTEND Orthopaedic Surgery
CPT/HCPCS: 64448; 64999; 85025; 85610; 85730

== ENCOUNTER 2025-01-26 07:50 | Day surgery (SDC) | payer MEDICARE ==
[2025-01-24 17:56] VITALS: BMI 32.7
[2025-01-26] MEDS: IV FLUID CONTINUATION 1,000 ML IV ONE (08:26)
[2025-01-26 08:30] VITALS: TEMP 96.7
[2025-01-26 08:39] LABS: Glucose,Whole Blood 97 mg/dL (70-110)
[2025-01-26] MEDS: LACTATED RINGERS 1,000 ML IV SCH (08:40)
[2025-01-26] MEDS ORDERED: PROPOFOL 10 MG/ML 20 ML VIAL IV ONE (09:12)
--- NOTE | 2025-01-26 09:32 | P.PCN ---
Date of Procedure: 01/26/25 Procedure(s) Performed: BRIEF HISTORY: Patient is a 69-year-old pleasant white meat scheduled for an elective colonoscopy as a part of screening for colon cancer. PROCEDURE PERFORMED: Colonoscopy with biopsy. PREOPERATIVE DIAGNOSIS: Screening for colon cancer. IV sedation per Anesthesia. PROCEDURE: After informed consent was obtained, the patient, was brought into the endoscopy unit. IV sedation was administered by Anesthesia under continuous monitoring. Digital rectal examination was normal. Initially the Olympus CF-160 flexible video colonoscope was then inserted in the rectum, gradually advanced into the cecum without any difficulty. Careful examination was performed as the scope was gradually being withdrawn. Ileocecal valve and the appendiceal orifice were visualized and appeared normal. Prep was excellent. Mucosa of the cecum, had a 3 mm polyp that was removed by cold biopsy. Rest of the ascending colon, appeared normal. The transverse colon there was a 4 mm polyp that was removed by cold biopsy. Transverse colon, descending colon, sigmoid colon, and rectum appeared normal. Retroflexion was performed in the rectum and no lesions were seen. The patient tolerated the procedure well. IMPRESSION: 3 mm cecal polyp status post cold biopsy 4 mm transverse colon polyp status post cold biopsy Rest of the colon appeared normal RECOMMENDATIONS: Findings of this examination were discussed with the patient as well as his family.. He was advised to follow-up with the biopsy results. If the biopsy was adenoma he can have repeat colonoscopy in 5 years
[2025-01-26 09:37] VITALS: RESP 18
[2025-01-26 09:57] VITALS: BP 142/78; PULSE 78
== END 2025-01-26 10:22 | disposition home or self-care (01) ==
LOC: ORWHC2ENDO 07:50
PROVIDERS: ATTEND Internal Medicine Gastroenterology
DX: Z12.11 Encounter for screening for malignant neoplasm of colon (principal); D12.0 Benign neoplasm of cecum; K63.5 Polyp of colon
CPT/HCPCS: 88305; 45380; J2704